=== PATIENT | female | born 1975 | race Caucasian/White ===

== ENCOUNTER 2020-09-28 07:08 | Inpatient (IN) ==
[~2020-09-28 07:08] MED LIST: Ringers Solution, Lactated 1,000 ML IVC SCH
[2020-09-28] MEDS ORDERED: *HR* Rocuronium Bromide 50 MG/5 ML VIAL ONE (07:51)
[2020-09-28] MEDS ORDERED: *HR* Succinylcholine 200 MG/10 ML VIAL IVP ONE (07:51)
[2020-09-28] MEDS ORDERED: Dexamethasone 4 MG/ML VIAL ONE (07:51)
[2020-09-28] MEDS ORDERED: Ondansetron 4 MG/2 ML VIAL ONE (07:51)
[2020-09-28] MEDS ORDERED: *HR* Propofol 200 MG/20 ML VIAL IVP ONE (07:52)
[2020-09-28] MEDS ORDERED: *HR* FentaNYL (PF) 100 MCG/2 ML VIAL ONE (07:52)
[2020-09-28] MEDS ORDERED: Clindamycin 900 MG/50 ML 900 MG/50 ML IV.SOLN IVPB ONE (07:58)
[2020-09-28] MEDS ORDERED: *HR* PHENYLEPHRINE 1,000 MCG/10 ML SYRINGE IVP ONE (08:06)
[2020-09-28] MEDS ORDERED: *HR* Midazolam HCl 2 MG/2 ML VIAL ONE (08:28)
[2020-09-28] MEDS ORDERED: *HR* HYDROcodone/Acet 5/325 mg TABLET PO PRN (09:00)
[2020-09-28] MEDS ORDERED: Acetaminophen IV 1,000 MG/100 ML BAG IVPB PRN (09:00)
[2020-09-28] MEDS ORDERED: Ondansetron 4 MG/2 ML VIAL IVP PRN ×2 (09:00→12:23)
[2020-09-28] MEDS ORDERED: EPHEDrine 50 MG/ML VIAL ONE (10:04)
[2020-09-28] MEDS ORDERED: *HR* Norepinephrine 4 MG/4 ML VIAL IVC ONE (10:21)
[2020-09-28] MEDS: *HR* HYDROmorphone (PF) 1 MG/ML SYRINGE IVP PRN ×4 (11:15→11:36)
[2020-09-28] MEDS ORDERED: D5% in Water 1,000 ML IVC PRN (12:23)
[2020-09-28] MEDS ORDERED: Naloxone 0.4 MG/ML INJ IVP PRN (12:23)
[2020-09-28] MEDS ORDERED: Dextrose Gel 15 GM/37.5 ML TUBE PO PRN ×2 (12:23)
[2020-09-28] MEDS ORDERED: *HR* Dextrose 50 % in Water (Vial) 50 ML VIAL IVP PRN (12:23)
[2020-09-28] MEDS: Ketorolac 15 MG/ML VIAL IVP SCH ×2 (13:10→18:19)
[2020-09-28] MEDS: *HR* Heparin 5,000 UNIT/ML VIAL SQ SCH ×2 (13:10→22:02)
[2020-09-28] MEDS: 0.9 % Sodium Chloride 1,000 ML IVC SCH (13:10)
[2020-09-28] MEDS ORDERED: NON-FORMULARY MEDICATION 1 EACH EACH (Gabapentin [Neurontin] 600 MG Tablet) PO SCH (15:00)
[2020-09-28] MEDS: Gabapentin 300 MG CAPSULE PO SCH ×2 (15:19→20:16)
[2020-09-28] MEDS: tiZANidine 4 MG TABLET PO SCH ×2 (15:19→20:12)
[2020-09-28] MEDS: *HR* HYDROcodone/Acet 5/325 mg TABLET PO PRN ×2 (15:20→22:23)
[2020-09-28] MEDS: Ipratropium/Albuterol Neb 3 ML IH SCH ×4 (15:39→22:51)
[2020-09-28] MEDS: Insulin LISPRO 300 UNITS/3 ML VIAL SUBQ SCH (17:48)
[2020-09-28] MEDS: diazePAM 5 MG TABLET PO SCH (20:11)
[2020-09-28] MEDS: Famotidine 20 MG TABLET PO SCH (20:12)
[2020-09-28] MEDS: Mirtazapine 15 MG TABLET PO SCH (20:16)
[2020-09-28] MEDS: Sennosides/Docusate Sodium TABLET PO SCH (20:22)
[2020-09-28] MEDS ORDERED: Insulin LISPRO 300 UNITS/3 ML VIAL SUBQ SCH (21:00)
[2020-09-29] MEDS: Ketorolac 15 MG/ML VIAL IVP SCH ×4 (00:11→16:34)
[2020-09-29] MEDS: Ipratropium/Albuterol Neb 3 ML IH SCH ×6 (03:45→23:53)
[2020-09-29 04:42] LABS: Hemoglobin 12.6 g/dL (11.5-15.4); Mean Corpuscular HGB Conc 32.3 g/dL (31.6-35.5); Mean Corpuscular Hemoglobin 29.4 pg (28.0-33.3); Mean Corpuscular Volume 90.9 fL (83.0-100.0); Mean Platelet Volume 9.4 fL (9.4-12.4); Platelet Count 300 K/mcL (140-400); Red Blood Count 4.29 M/mcL (3.82-4.97); Red Cell Distribution Width 15.1 % (11.5-14.5); White Blood Count 22.4 K/mcL (4.3-11.1)
[2020-09-29 05:01] LABS: % Iron Saturation 8 % (15-50); BUN/Creatinine Ratio 19 (6-26); Blood Urea Nitrogen 17 mg/dL (6-20); Calcium 8.2 mg/dL (8.6-10.3); Carbon Dioxide 22 mEq/L (23-29); Chloride 100 mEq/L (98-107); Glucose 392 mg/dL (70-105); Iron 28 mcg/dL (50-170); Magnesium 1.7 mg/dL (1.6-2.6); Osmolality,Calculated 288 (280-300); Potassium 3.8 mEq/L (3.5-5.1); Sodium 130 mEq/L (136-145); Transferrin 256 mg/dL (203-362); eGFR For African Americans > 60 (> 60); eGFR For Non-African Americans > 60 (> 60)
[2020-09-29] MEDS: 0.9 % Sodium Chloride 1,000 ML IVC SCH (06:00)
[2020-09-29] MEDS: *HR* Heparin 5,000 UNIT/ML VIAL SQ SCH ×3 (06:01→20:55)
[2020-09-29] MEDS: Insulin LISPRO 300 UNITS/3 ML VIAL SUBQ SCH ×4 (08:11→20:36)
[2020-09-29] MEDS: Gabapentin 300 MG CAPSULE PO SCH ×3 (08:12→20:53)
[2020-09-29] MEDS: Famotidine 20 MG TABLET PO SCH ×2 (08:12→20:53)
[2020-09-29] MEDS: *HR* Metformin 500 MG TABLET PO SCH ×2 (08:12→16:34)
[2020-09-29] MEDS: diazePAM 5 MG TABLET PO SCH ×2 (08:12→20:54)
[2020-09-29] MEDS: tiZANidine 4 MG TABLET PO SCH ×3 (08:12→20:53)
[2020-09-29] MEDS: Sennosides/Docusate Sodium TABLET PO SCH ×2 (08:12→20:53)
[2020-09-29] MEDS: *HR* Pioglitazone 30 MG TABLET PO SCH (08:12)
[2020-09-29] MEDS: Nicotine 21 MG PATCH.TD24 TD SCH (08:12)
[2020-09-29] MEDS: Insulin DETEMIR 100 UNIT/ML X5UNITS SUBQ SCH (08:13)
[2020-09-29] MEDS: Ziprasidone 80 MG CAPSULE PO SCH ×2 (08:14→20:54)
[2020-09-29] MEDS: *HR* HYDROcodone/Acet 5/325 mg TABLET PO PRN ×2 (10:59→18:46)
[2020-09-29] MEDS ORDERED: *HR* HYDROcodone/Acet 5/325 mg TABLET PO ONE (19:55)
[2020-09-29] MEDS: Mirtazapine 15 MG TABLET PO SCH (20:54)
[2020-09-29] MEDS: Melatonin 3 MG TABLET PO PRN (20:54)
[2020-09-30] MEDS: Ketorolac 15 MG/ML VIAL IVP SCH ×5 (00:17→23:55)
[2020-09-30] MEDS: Ipratropium/Albuterol Neb 3 ML IH SCH ×5 (03:48→19:42)
[2020-09-30] MEDS: *HR* HYDROcodone/Acet 5/325 mg TABLET PO PRN ×4 (03:53→21:42)
[2020-09-30] MEDS: *HR* Heparin 5,000 UNIT/ML VIAL SQ SCH ×3 (05:22→20:33)
[2020-09-30] MEDS: Gabapentin 300 MG CAPSULE PO SCH ×3 (07:34→20:32)
[2020-09-30] MEDS: tiZANidine 4 MG TABLET PO SCH ×3 (07:35→20:33)
[2020-09-30] MEDS: diazePAM 5 MG TABLET PO SCH ×2 (07:35→20:32)
[2020-09-30] MEDS: Sennosides/Docusate Sodium TABLET PO SCH ×2 (07:35→20:32)
[2020-09-30] MEDS: Famotidine 20 MG TABLET PO SCH ×2 (07:35→20:34)
[2020-09-30] MEDS: Nicotine 21 MG PATCH.TD24 TD SCH (07:35)
[2020-09-30] MEDS: *HR* Metformin 500 MG TABLET PO SCH ×2 (07:35→17:04)
[2020-09-30] MEDS: *HR* Pioglitazone 30 MG TABLET PO SCH (07:35)
[2020-09-30] MEDS: Insulin LISPRO 300 UNITS/3 ML VIAL SUBQ SCH ×4 (07:40→20:37)
[2020-09-30] MEDS: Insulin DETEMIR 100 UNIT/ML X5UNITS SUBQ SCH (07:40)
[2020-09-30] MEDS: Ziprasidone 80 MG CAPSULE PO SCH (20:32)
[2020-09-30] MEDS: Mirtazapine 15 MG TABLET PO SCH (20:33)
[2020-10-01] MEDS: Ipratropium/Albuterol Neb 3 ML IH SCH ×7 (00:06→23:52)
[2020-10-01] MEDS: *HR* HYDROcodone/Acet 5/325 mg TABLET PO PRN ×4 (03:37→20:20)
[2020-10-01] MEDS: Ketorolac 15 MG/ML VIAL IVP SCH ×3 (05:05→17:21)
[2020-10-01] MEDS: *HR* Heparin 5,000 UNIT/ML VIAL SQ SCH ×3 (05:06→20:22)
[2020-10-01] MEDS: *HR* Pioglitazone 30 MG TABLET PO SCH (07:35)
[2020-10-01] MEDS: Gabapentin 300 MG CAPSULE PO SCH ×3 (07:35→20:19)
[2020-10-01] MEDS: tiZANidine 4 MG TABLET PO SCH ×3 (07:36→20:19)
[2020-10-01] MEDS: Sennosides/Docusate Sodium TABLET PO SCH ×2 (07:36→20:18)
[2020-10-01] MEDS: *HR* Metformin 500 MG TABLET PO SCH ×2 (07:36→17:21)
[2020-10-01] MEDS: diazePAM 5 MG TABLET PO SCH ×2 (07:37→20:19)
[2020-10-01] MEDS: Nicotine 21 MG PATCH.TD24 TD SCH (07:37)
[2020-10-01] MEDS: Famotidine 20 MG TABLET PO SCH ×2 (07:37→20:19)
[2020-10-01] MEDS: Insulin DETEMIR 100 UNIT/ML X5UNITS SUBQ SCH (07:37)
[2020-10-01] MEDS: Insulin LISPRO 300 UNITS/3 ML VIAL SUBQ SCH ×4 (07:40→20:24)
[2020-10-01] MEDS: Ziprasidone 80 MG CAPSULE PO SCH (20:18)
[2020-10-01] MEDS: Mirtazapine 15 MG TABLET PO SCH (20:19)
[2020-10-01] MEDS: Melatonin 3 MG TABLET PO PRN (20:20)
[2020-10-02] MEDS: Ketorolac 15 MG/ML VIAL IVP SCH ×3 (00:01→12:27)
[2020-10-02] MEDS: *HR* HYDROcodone/Acet 5/325 mg TABLET PO PRN ×3 (02:02→13:20)
[2020-10-02] MEDS: Ipratropium/Albuterol Neb 3 ML IH SCH ×3 (03:39→11:16)
[2020-10-02] MEDS: *HR* Heparin 5,000 UNIT/ML VIAL SQ SCH (05:27)
[2020-10-02] MEDS: *HR* Metformin 500 MG TABLET PO SCH (07:58)
[2020-10-02] MEDS: *HR* Pioglitazone 30 MG TABLET PO SCH (07:58)
[2020-10-02] MEDS: Insulin LISPRO 300 UNITS/3 ML VIAL SUBQ SCH ×2 (07:59→12:29)
[2020-10-02] MEDS: Insulin DETEMIR 100 UNIT/ML X5UNITS SUBQ SCH (09:30)
[2020-10-02] MEDS: Nicotine 21 MG PATCH.TD24 TD SCH (09:30)
[2020-10-02] MEDS: Gabapentin 300 MG CAPSULE PO SCH (09:31)
[2020-10-02] MEDS: diazePAM 5 MG TABLET PO SCH (09:31)
[2020-10-02] MEDS: Famotidine 20 MG TABLET PO SCH (09:31)
[2020-10-02] MEDS: tiZANidine 4 MG TABLET PO SCH (09:31)
[2020-10-02] MEDS: Sennosides/Docusate Sodium TABLET PO SCH (09:31)
[2020-10-02 11:53] VITALS: BP 129/78
[2020-10-04] MEDS ORDERED: (Dulaglutide [Trulicity] 1.5 MG/0.5 ML Pen.Injctr) SQ SCH (09:00)
== END 2020-10-02 15:37 | disposition home or self-care (01) | DRG 121 ==
LOC: SAMDAY 07:08 → 2NNU 12:21
PROVIDERS: ADMIT Thoracic Surgery (Cardiothoracic Vascular Surgery); ATTEND Thoracic Surgery (Cardiothoracic Vascular Surgery)